=== PATIENT | male | born 1985 | race Caucasian/White ===

== ENCOUNTER 2024-02-18 09:56 | Emergency (ER) | payer OTHER, SELFPAY ==
--- NOTE | ~2024-02-18 | XR_ITS ---
EXAMINATION: XR finger 5th LT min 2V DATE: 02/18/2024 10:48 INDICATION: Left hand fifth digit injury. TECHNIQUE: 4 views of left hand fifth digit were obtained. COMPARISON: None. FINDINGS: Bone alignment is normal. No fracture. Joint spaces are normal. IMPRESSION: 1. No fracture or radiopaque foreign body. Bandage material decreases sensitivity. Reviewed, dictated and finalized at location A. IMPRESSION: 1. No fracture or radiopaque foreign body. Bandage material decreases sensitivi ty.
[2024-02-18 10:21] VITALS: BP 154/90; PULSE 85; RESP 18; TEMP 36.6; O2SAT 100
--- NOTE | 2024-02-18 10:22 | ED.UPPEXIN ---
HPI - Extremity Injury (Upper) General Chief Complaint: Extremity Injury, Upper Stated Complaint: L walter injury Time Seen by Provider: 02/18/24 10:00 Focused HPI: This is a 38-year-old male that presents to the emergency department for left 5th finger injury sustained just prior to arrival. Reports he had it crushed at work. Was able to immediately remove his finger from between the objects. He is up-to-date on tetanus. Denies decreased ROM or numbness. GENERAL: Well-appearing, well-nourished, and in no acute distress. HEAD: Normocephalic, atraumatic. CHEST: Clear to auscultation. ?No respiratory distress. HEART: Regular rate and rhythm.? NEURO: ?Alert and oriented x3. Patient screened in triage and initial orders placed.? ?Additional care and disposition to be based upon?diagnostic testing and treatment. Related Data Allergies Allergy/AdvReac Type Severity Reaction Status Date / Time No Known Allergies Allergy Verified 02/18/24 09:57 Review of Systems Review of Systems: CONSTITUTIONAL: Denies fever SKIN: Reports laceration MUSCULOSKELETAL: Denies joint pain, or myalgia. NEUROLOGIC: Denies numbness All systems reviewed & are unremarkable except as noted in HPI and below PMFSH Past Medical History Medical History (Updated 02/18/24 @ 12:46 by Em Fernandes PA-C) No active medical problems Social History Social History (Updated 02/18/24 @ 12:46 by Em Fernandes PA-C) Substance use: never Exam Narrative: GENERAL: Well-appearing, well-nourished, and in no acute distress. HEAD: Normocephalic, atraumatic. EYES: EOMI. EXTREMITIES: Normal range of motion. No edema or obvious deformity. 1cm linear laceration into subcutaneous tissue to the left fifth finger distal phalanx SKIN: Warm, dry, no rash. NEURO: No focal deficits. Alert and oriented x3. PSYCH: Normal mood and affect Course Course Emergency Course: patient educated on further wound care Vital Signs Vital signs: Vital Signs Temperature 97.9 F 02/18/24 10:21 Pulse Rate 85 02/18/24 10:21 Respiratory Rate 18 02/18/24 10:21 Blood Pressure 154/90 H 02/18/24 10:21 Pulse Oximetry 100 02/18/24 10:21 Oxygen Delivery Room Air 02/18/24 10:21 Temperature 97.9 F 02/18/24 10:21 Pulse Rate 85 02/18/24 10:21 Respiratory Rate 18 02/18/24 10:21 Blood Pressure 154/90 H 02/18/24 10:21 Pulse Oximetry 100 02/18/24 10:21 Oxygen Delivery Room Air 02/18/24 10:21 MDM - Extremity Injury (Upper) MDM Narrative Medical decision making narrative: patient presents the emergency department after a laceration of the left 5th finger sustained just prior to arrival. Patient is neurovascularly intact. Left 5th finger x-rays without acute osseous abnormalities. He is up-to-date on tetanus. His wound was irrigated and closed with sutures. He is to follow up with primary provider. He was given warnings to return to the ER Differential Diagnosis Differential diagnosis: Likely other ( laceration, abrasion, finger fracture) Imaging Data Radiologist's impression: ITS Impressions Finger X-Ray 02/18/24 10:59 IMPRESSION: 1. No fracture or radiopaque foreign body. Bandage material decreases sensitivity. Critical Care Time Critical Care Time Critical Care Time: No Discharge Plan Discharge Clinical Impression: Laceration Patient Disposition: Home, Self-Care Condition: Stable Instructions: Antibiotic Form, Laceration (ED) Additional Instructions: Return to the emergency department if you experience fever, redness or swelling of your wound, abnormal drainage from your wound, or any other symptoms that are concerning to you. Apply antibiotic ointment daily. Do not soak the wound. Clean with mild soap and water daily Follow-up with your primary care doctor for suture removal in 10-14 days. Prescriptions: New cephalexin 500 mg capsule 500 mg PO Q8H 5 Days Qty: 15 0RF
[2024-02-18] MEDS: LIDOCAINE HCL 1% LOCAL INJ 10 ML VIAL INFILTRATE (12:48)
[2024-02-18 12:49] VITALS: BP 142/82; PULSE 78; RESP 20; TEMP 36.9; O2SAT 100
== END 2024-02-18 12:50 | disposition home or self-care (01) ==
PROVIDERS: Emergency Provider Physician Assistant
DX: S61.217A Laceration without foreign body of left little finger without damage to nail, initial encounter (principal); W23.0XXA Caught, crushed, jammed, or pinched between moving objects, initial encounter
CPT/HCPCS: 12001; 73140; 99283